=== PATIENT | male | born 1980 | race Caucasian/White ===

== ENCOUNTER 2016-11-22 07:30 | Emergency (ER) | payer OTHER ==
--- NOTE | 2016-11-22 08:17 | ED CLINICAL REPORT ---
Clinical Report - Physicians/Mid Levels [facility] [address] [place] [address] 11/22/2016 7:34 Patient: KASSANDRA SUAREZ Time Seen: 0741; initial patient contact. Arrived- By private vehicle. Historian- patient. HISTORY OF PRESENT ILLNESS Chief Complaint: INJURY TO FACE. The injury occurred today. The patient sustained a single moderate blow with a metal object. Occurred at work. The patient complains of moderate pain. No blow to the head, neck pain, loss of consciousness or seizure. Not dazed. REVIEW OF SYSTEMS All systems otherwise negative, except as recorded above. PAST HISTORY See nurses notes. Tetanus immunization status is up-to-date. Medications: Flomax Oral. Flonase Nasal. Allergies: No Known Drug Allergy. ADDITIONAL NOTES The nursing notes have been reviewed. PHYSICAL EXAM Vital Signs: 11/22/2016 07:40 BP: 147/95. HR: 85. RR: 16. O2 saturation: 98%. Temp: 98.1 F. Pain level now: 5/10. Oxygen saturation normal. Appearance: Alert. No acute distress. Head: Head non-tender. No swelling of head. No Castellon's sign or raccoon eyes. (1 cm laceration to the left cheek with small hematoma. no active bleeding. no gross contamination. no fb.). Eyes: Pupils equal, round and reactive to light. Pupillary exam: Right pupil 3mm, round and reactive to light directly and consensually and with accommodation. Left pupil: 3mm, round and reactive to light directly and consensually and with accommodation. EOM intact. ENT: No dental injury. No hemotympanum. Pharynx normal. No malocclusion. Neck: No decreased ROM or muscle spasm in the neck. No pain with movement of head/neck. Painless ROM. Non-tender. No vertebral tenderness. CVS: Normal heart rate and rhythm. Heart sounds normal. Pulses normal. Respiratory: Breath sounds normal. Chest nontender. Abdomen: Soft and nontender. No organomegaly. Back: No tenderness. ROM normal. Skin: Skin intact. Skin warm and dry. Normal skin color. Normal skin turgor. Extremities: Normal inspection. Pelvis stable. Extremities atraumatic. No lower extremity edema. Neuro: [place] Coma Scale: 15- eyes open spontaneously (4); best verbal response- oriented x 3 (5); best motor response- obeys commands (6). Oriented X 3. Mood/affect normal. Speech normal. No motor deficit. Normal gait. No sensory deficit. PROGRESS AND PROCEDURES Laceration Repair: Location: face (left cheek). Length: 1 cm. Complexity: simple (closed with tissue adhesive). Wound depth/shape- subcutaneous. Distal neuro/vascular/tendon status normal. Prepped with chlorhexidine. Wound explored, cleansed, irrigated and examined to the base in bloodless field extensively with normal saline. Closure of superficial layer: (three layers). Skin adhesive used. Post-procedure: he is stable and there are no complications. Bleeding is controlled and neuro-vascular status is intact distal to the wound. Tetanus immunization up-to-date. Estimated blood loss: < 2 mL. Course of Care: patient with injury to the face. no signs of facial fracture. no signs of entrapment. patient without concerning signs of intracranial bleed. offered evaluation with CT however patient declined. reports he would like to have the wound closed. approximated well with dermabond. see procedure note for details. patient stable on repeat exam. discussed with patient his work up in the ED including diagnosis, home care, follow up, and return precautions. All questions answered. Patient expressed understanding of these instructions and was agreeable to them. Disposition: Discharged. Condition: good. CLINICAL IMPRESSION Single laceration to the left cheek area.No foreign body present. Single contusion with soft tissue hematoma to the left cheek area. Essential hypertension. INSTRUCTIONS Warnings: GENERAL WARNINGS: Return or contact your physician immediately if your condition worsens or changes unexpectedly, if not improving as expected, or if other problems arise. Specifically return if pain, vomiting, bleeding, breathing difficulty or fever. Your Current Medications: CONTINUE TAKING THE FOLLOWING MEDICATIONS: Flomax Oral. Flonase Nasal. OTC Medications: Acetaminophen (available over the counter): take according to label instructions. Motrin (available over the counter): take according to label instructions. Follow-up: Return to the emergency department as needed. Follow up with your doctor in five days. Reason for referral: recheck today's concerns. Summary of care provided to patient via paper. Screening today revealed the patient's blood pressure to be in the hypertensive range. The patient should follow up with a primary care provider for blood pressure management. Understanding of the discharge instructions verbalized by patient. (Electronically signed by Chris Jolly Dr. 11/23/2016 8:45)
--- NOTE | 2016-11-22 08:17 | ED NURSING NOTES ---
Clinical Report - Nurses [facility] [address] [place] [address] 11/22/2016 7:34 Patient: KASSANDRA SUAREZ TRIAGE Triage time 07:40 Nov 22 2016. Acuity: LEVEL 3. Chief Complaint: LACERATION. Alert. ADILIA COMA SCORE: [place] Coma Scale: 15- eyes open spontaneously (4); best verbal response- oriented x 4 (5); best motor response- obeys commands (6). --07:49 Jack Dawson R.N. 07:40 11/22/16. BP: 147/95. HR: 85. RR: 16. O2 saturation: 98% on room air. Temp: 98.1 F. Pain level now: 09/21. --07:49 Jack Dawson R.N. Weight: 69.3 kg stated. Height/Length: 67 inches Per Patient. BMI: 24. --07:41 Jcak Dawson R.N. Medications Flomax Oral. Flonase Nasal. --07:46 Jack Dawson R.N. Allergies No Known Drug Allergy. --07:45 Jack Dawson R.N. History Arrived by private vehicle. Historian: patient. Unaccompanied. Primary physician ([facility]). ( Laceration under (L) Eye. Pt states that he was using a leticia on a semi trailer and the leticia released hitting him in the face.). Location of injuries: left cheek. No loss of consciousness. 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 Trauma activation: Pre-hospital notification of patient arrival was not received. PAST MEDICAL HX: Tetanus status: up-to-date. Immunizations: status is unknown. SOCIAL HX: Smoker- current status unknown. No alcohol use or drug use. No infectious disease exposure. ABUSE ASSESSMENT: No report of abuse. FALL RISK ASSESSMENT: Fall risk assessment completed. No fall risk identified. NUTRITIONAL RISK ASSESSMENT: The nutritional risk assessment revealed no deficiencies. FUNCTIONAL ASSESSMENT: Functional assessment: no impairments noted. LEARNING NEEDS ASSESSMENT: The learning needs assessment revealed no barriers. SKIN INTEGRITY ASSESSMENT: Skin integrity risk assessment completed. No skin integrity risk identified. --07:49 Jack Dawson R.N. PROBLEMS: Myofascial Strain. Headache. Immunizations. Hypertension. Dental Pain. --07:47 Jack Dawson R.N. ADDITIONAL SURGERIES: Vasectomy. --07:47 Jack Dawson R.N. Interventions ID band on patient. To treatment room. --07:49 Jack Dawson R.N. PHYSICAL ASSESSMENT Ambulatory to room. GENERAL / NEURO / PSYCH: Alert. Oriented X 4. Appears in pain. RESPIRATORY: Respirations not labored. CVS: Normal heart rate and rhythm. GI / : Abdomen soft. EXTREMITIES: Extremities exhibit normal ROM. Neuro-vascular status intact to the extremity. SKIN: Skin is warm and dry. ( laceration under (L) eye). --07:50 Jack Dawson R.N. NURSING PROGRESS NOTES Reassurance given. Patient identifiers checked. Call light placed in reach. Side rails up x 1. Bed placed in lowest position. Brakes of bed on. Patient ready for evaluation- chart flagged and ED physician notified. --07:50 Jack Dawson R.N. DISPOSITION / DISCHARGE Departure time: 08:20 Nov 22 2016. Condition at departure: improved. No learning barriers present. Discharge instructions provided and reviewed with the patient. Reviewed warnings. Reviewed medication(s). Treatments reviewed. Reviewed referrals. Patient verbalized understanding. Written instructions provided in Filipino. The patient was discharged home. He left the Emergency Department ambulatory and via private vehicle. Patient driving. --08:20 Lincoln Pratt R.N. 07:40 11/22/16. BP: 147/95. HR: 85. RR: 16. O2 saturation: 98% on room air. Temp: 98.1 F. Pain level now: 09/21. --08:20 Lincoln Pratt R.N. Locked/Released at 11/22/2016 8:20 by Lincoln Pratt R.N.
--- NOTE | 2016-11-22 08:17 | ED ORDER SUMMARY ---
..... Patient: KASSANDRA SUAREZ OrderSheet [facility] VisitID: [id number] [address] [place] [address] 36y, M Registration Date/Time: 11/22/2016 ORDER SHEET Weight: 69.3 kg (stated) Allergies: No Known Drug Allergy GENERAL ORDERS: Irrigate Wounds (07:50 11/22/2016 Pasha Russ) (8:00 [place] [id number]) MEDICATION ORDERS: IV FLUIDS: ORDER SHEET NOTES: [Electronically signed by Lincoln Pratt R.N. (08:20 11/22/2016)] [Electronically signed by Chris Jolly Dr. (08:45 11/23/2016)] [Electronically locked/signed by Lincoln Pratt R.N. (08:20 11/22/2016)]
--- NOTE | 2016-11-22 08:17 | ED NURSING NOTES ---
Clinical Report - Nurses [facility] [address] [place] [address] 11/22/2016 7:34 Patient: KASSANDRA SUAREZ TRIAGE Triage time 07:40 Nov 22 2016. Acuity: LEVEL 3. Chief Complaint: LACERATION. Alert. ADILIA COMA SCORE: [place] Coma Scale: 15- eyes open spontaneously (4); best verbal response- oriented x 4 (5); best motor response- obeys commands (6). --07:49 Jack Dawson R.N. 07:40 11/22/16. BP: 147/95. HR: 85. RR: 16. O2 saturation: 98% on room air. Temp: 98.1 F. Pain level now: 09/21. --07:49 Jack Dawson R.N. Weight: 69.3 kg stated. Height/Length: 67 inches Per Patient. BMI: 24. --07:41 Jack Dawson R.N. Medications Flomax Oral. Flonase Nasal. --07:46 Jack Dawson R.N. Allergies No Known Drug Allergy. --07:45 Jack Dawson R.N. History Arrived by private vehicle. Historian: patient. Unaccompanied. Primary physician ([facility]). ( Laceration under (L) Eye. Pt states that he was using a leticia on a semi trailer and the leticia released hitting him in the face.). Location of injuries: left cheek. No loss of consciousness. 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 Trauma activation: Pre-hospital notification of patient arrival was not received. PAST MEDICAL HX: Tetanus status: up-to-date. Immunizations: status is unknown. SOCIAL HX: Smoker- current status unknown. No alcohol use or drug use. No infectious disease exposure. ABUSE ASSESSMENT: No report of abuse. FALL RISK ASSESSMENT: Fall risk assessment completed. No fall risk identified. NUTRITIONAL RISK ASSESSMENT: The nutritional risk assessment revealed no deficiencies. FUNCTIONAL ASSESSMENT: Functional assessment: no impairments noted. LEARNING NEEDS ASSESSMENT: The learning needs assessment revealed no barriers. SKIN INTEGRITY ASSESSMENT: Skin integrity risk assessment completed. No skin integrity risk identified. --07:49 Jack Dawson R.N. PROBLEMS: Myofascial Strain. Headache. Immunizations. Hypertension. Dental Pain. --07:47 Jack Dawson R.N. ADDITIONAL SURGERIES: Vasectomy. --07:47 Jack Dawson R.N. Interventions ID band on patient. To treatment room. --07:49 Jack Dawson R.N. PHYSICAL ASSESSMENT Ambulatory to room. GENERAL / NEURO / PSYCH: Alert. Oriented X 4. Appears in pain. RESPIRATORY: Respirations not labored. CVS: Normal heart rate and rhythm. GI / : Abdomen soft. EXTREMITIES: Extremities exhibit normal ROM. Neuro-vascular status intact to the extremity. SKIN: Skin is warm and dry. ( laceration under (L) eye). --07:50 Jack Dawson R.N. NURSING PROGRESS NOTES Reassurance given. Patient identifiers checked. Call light placed in reach. Side rails up x 1. Bed placed in lowest position. Brakes of bed on. Patient ready for evaluation- chart flagged and ED physician notified. --07:50 Jack Dawson R.N. DISPOSITION / DISCHARGE Departure time: 08:20 Nov 22 2016. Condition at departure: improved. No learning barriers present. Discharge instructions provided and reviewed with the patient. Reviewed warnings. Reviewed medication(s). Treatments reviewed. Reviewed referrals. Patient verbalized understanding. Written instructions provided in Gambian. The patient was discharged home. He left the Emergency Department ambulatory and via private vehicle. Patient driving. --08:20 Lincoln Pratt R.N. 07:40 11/22/16. BP: 147/95. HR: 85. RR: 16. O2 saturation: 98% on room air. Temp: 98.1 F. Pain level now: 09/21. --08:20 Lincoln Pratt R.N. Locked/Released at 11/22/2016 8:20 by Lincoln Pratt R.N.
--- NOTE | 2016-11-22 08:17 | ED ORDER SUMMARY ---
..... Patient: KASSANDRA SUAREZ OrderSheet [facility] VisitID: [id number] [address] [place] [address] 36y, M Registration Date/Time: 11/22/2016 ORDER SHEET Weight: 69.3 kg (stated) Allergies: No Known Drug Allergy GENERAL ORDERS: Irrigate Wounds (07:50 11/22/2016 Pasha Russ) (8:00 [place] [address]) MEDICATION ORDERS: IV FLUIDS: ORDER SHEET NOTES: [Electronically signed by Lincoln Pratt R.N. (08:20 11/22/2016)] [Electronically signed by Chris Jolly Dr. (08:45 11/23/2016)] [Electronically locked/signed by Lincoln Pratt R.N. (08:20 11/22/2016)]
--- NOTE | 2016-11-23 08:45 | ED MED RECONCILIATION SUMMARY ---
Patient: KASSANDRA SUAREZ Medication Reconciliation Report [facility] VisitID: [id number] [place] [address] 36y, M Registration Date/Time: 11/22/2016 Weight: 69.3 kg Height/Length: 67 in. BMI: 24.0 ALLERGIES: No Known Drug Allergy The patient's Home Medications are listed below: CONTINUE TAKING THE FOLLOWING MEDICATIONS: Flomax Oral Flonase Nasal The source(s) of the original Home Medication information: Not obtained. The following Medications were given to the patient in the Emergency Department: None. The following Medications were prescribed to the patient: Acetaminophen (available over the counter): take according to label instructions. -- Chris Jolly Dr. Motrin (available over the counter): take according to label instructions. -- Chris Jolly Dr.
--- NOTE | 2016-11-23 08:45 | ED MED RECONCILIATION SUMMARY ---
Patient: KASSANDRA SUAREZ Medication Reconciliation Report [facility] VisitID: [id number] [place] [address] 36y, M Registration Date/Time: 11/22/2016 Weight: 69.3 kg Height/Length: 67 in. BMI: 24.0 ALLERGIES: No Known Drug Allergy The patient's Home Medications are listed below: CONTINUE TAKING THE FOLLOWING MEDICATIONS: Flomax Oral Flonase Nasal The source(s) of the original Home Medication information: Not obtained. The following Medications were given to the patient in the Emergency Department: None. The following Medications were prescribed to the patient: Acetaminophen (available over the counter): take according to label instructions. -- Chris Jolly Dr. Motrin (available over the counter): take according to label instructions. -- Chris Jolly Dr.
--- NOTE | 2016-11-23 08:45 | ED MAR SUMMARY ---
..... Medication Administration Record [facility] [address] [place] [address] Patient: KASSANDRA SUAREZ Visit ID: [id number] 36y, M Weight: 69.3 kg Height/Length: 67 in BMI: 24 ALLERGIES: No Known Drug Allergy
--- NOTE | 2016-11-23 08:45 | ED DISCHARGE INSTRUCTIONS ---
Patient: KASSANDRA SUAREZ General Instructions [facility] VisitID: [id number] [place] [address] 36y, M Registration Date/Time: 11/22/2016 Single laceration to the left cheek area.No foreign body present. Single contusion with soft tissue hematoma to the left cheek area. Essential hypertension. INSTRUCTIONS Warnings: GENERAL WARNINGS: Return or contact your physician immediately if your condition worsens or changes unexpectedly, if not improving as expected, or if other problems arise. Specifically return if pain, vomiting, bleeding, breathing difficulty or fever. Your Current Medications: CONTINUE TAKING THE FOLLOWING MEDICATIONS: Flomax Oral. Flonase Nasal. OTC Medications: Acetaminophen (available over the counter): take according to label instructions. Motrin (available over the counter): take according to label instructions. Follow-up: Return to the emergency department as needed. Follow up with your doctor in five days. Reason for referral: recheck today's concerns. Summary of care provided to patient via paper. Screening today revealed the patient's blood pressure to be in the hypertensive range. The patient should follow up with a primary care provider for blood pressure management. Understanding of the discharge instructions verbalized by patient. ADDITIONAL INFORMATION Laceration, Face (Suture Or Tape) Alaceration is a cut through the skin. This will require stitches if it is deep. Minor cuts may be treated with surgical tape. Home care The following guidelines will help you care for your laceration at home: If a bandage was applied and it becomes wet or dirty, replace it. Otherwise, leave it in place for the first 24 hours, then change it once a day or as directed. If sutures were used, clean the wound daily: After removing the bandage, wash the area with soap and water. Use a wet cotton swab to loosen and remove any blood or crust that forms. After cleaning, keep the wound clean and dry. Talk with your doctor before applying any antibiotic ointment to the wound. Reapply a fresh bandage. You may remove the bandage to shower as usual after the first 24 hours, but do not soak the area in water (no swimming) until the sutures are removed. If surgical tape was used, keep the area clean and dry. If it becomes wet, blot it dry with a towel. The doctor may prescribe an antibiotic cream or ointment to prevent infection. Do not stop taking this medication until you have have finished the prescribed course or the doctor tells you to stop. The doctor may also prescribe medications for pain. Follow the doctor's instructions for taking these medications.If you have chronic liver or kidney disease or ever had a stomach ulcer or GI bleeding, talk with your doctor before using these medicines. Follow-up care Follow up with your health care provider. Most facial cuts heal in five days with no problem. However, even with proper treatment, a wound infection sometimes occurs. Therefore, check the wound daily for the warning signs listed below. Stitches should not be left in the face for more thanfivedays; otherwise, permanent stitch paige may form. If surgical tape closures were used, you may remove them yourself afterfivedays, if they have not fallen off by then. When to seek medical care Get prompt medical attention if any of these occur: Increasing pain in the wound Redness, swelling, or pus coming from the wound If sutures come apart or fall out before 5 days If the surgical tape closures fall off before 5 days, or the wound edges reopen Fever of 100.4F (38C) or higher, or as directed by your health care provider Bleeding not controlled by direct pressure Facial Contusion (No Wake-Up) A facial contusion is a bruise with swelling and sometimes bleeding under the skin. The swelling should start to go down within two days. Although there may be no signs of a serious injury at this time, symptoms may appear later which could be a sign of a more serious problem. Therefore, watch for the warning signs below. Home care The following guidelines will help you care for your injury at home: If you have swelling of the face, apply an ice pack (ice cubes in a plastic bag, wrapped in a towel) for 20 minutes every 12 hours until the swelling starts to go down. If you have scrapes or cuts on your face, clean them daily with soap and water. Apply an antibiotic ointment or cream for the first few days to prevent infection. You may use acetaminophen or ibuprofen to control pain, unless another pain medicine was prescribed.If you have chronic liver or kidney disease or ever had a stomach ulcer or GI bleeding, talk with your doctor before using these medicines. Do not use ibuprofen in children under six months of age. For the next 24 hours: Do not take alcohol, sedatives or medicines that make you sleepy. Do not drive or operate machinery. Avoid strenuous activities. No lifting or straining. If you have had any symptoms of aconcussiontoday (nausea, vomiting, dizziness, confusion, headache, memory loss or if you were knocked out), do not return to sports or any activity that could result in another head injury until all symptoms are gone and you have been cleared by your doctor. A second head injury before fully recovering from the first one can lead to serious brain injury. Follow-up care Follow up with your doctor in one week or as directed. Note: Any X-rays or CT scans taken will be reviewed by a radiologist. You will be notified of any new findings that may affect your care. When to seek medical care Get prompt medical attention if any of the following occur: Repeated vomiting Severe or worsening headache or dizziness Unusual drowsiness, or unable to awaken as usual Confusion or change in behavior or speech, memory loss, blurred vision Convulsion (seizure) Increasing scalp or face swelling Redness, warmth or pus from the swollen area Fluid drainage or bleeding from the nose or ears Fever of 100.4F (38C) or higher, or as directed by your health care provider Increasing jaw pain with chewing or increasing pain in the sinuses Nose looks crooked or cannot breathe through your nose after swelling goes down High Blood Pressure -- To Be Confirmed [No Tx] Your blood pressure was higher today than normal. Sometimes anxiety or pain can cause a temporary rise in blood pressure that later returns to normal. If your blood pressure is high on one measurement, this does not mean that you have hypertension (a chronic illness). However, you must have your blood pressure measured again within the next few days to find out if its still high. A normal blood pressure is 120/80 or less. The first (top) number is the "systolic" pressure. The second (bottom) number is the "diastolic" pressure. Hypertension exists when either the top number is 140 or higher, OR the bottom number is 90 or higher on repeated measurements. Blood pressure in the range of 120-140 (systolic) or 80-89 (diastolic) is considered "pre-hypertension". This means your are at risk for getting hypertension. You should have regular blood pressure checks to be sure your blood pressure is not rising. Home Care: Measure your blood pressure on 3 different days and write down the results. This can be done at your doctor's office or this facility. Some pharmacies and grocery stores offer automated blood pressure machines for your use. Follow Up: If your blood pressure is "high" (over 120/80) on 2 out of 3 days, you will need to follow up with your doctor for further evaluation and treatment. DO NOT PUT THIS OFF! Untreated high blood pressure increases the risk for heart attack, also known as acute myocardial infarction, or AMI, and stroke. It is a treatable condition. Get Prompt Medical Attention if any of the following occur: Chest pain or shortness of breath Severe headache Throbbing or rushing sound in the ears Nosebleed Sudden severe abdominal pain Extreme drowsiness, confusion or fainting Dizziness or vertigo (dizziness with spinning sensation) Weakness of an arm or leg or one side of the face Difficulty with speech or vision You have been given the following additional information: Laceration, Face (Suture Or Tape) Facial Contusion, No Wakeup Hypertension, To Be Confirmed (Electronically signed by Chris Jolly Dr. 11/23/2016 8:45)
--- NOTE | 2016-11-23 08:45 | ED MAR SUMMARY ---
..... Medication Administration Record [facility] [address] [place] [address] Patient: KASSANDRA SUAREZ Visit ID: [id number] 36y, M Weight: 69.3 kg Height/Length: 67 in BMI: 24 ALLERGIES: No Known Drug Allergy
== END 2016-11-22 08:20 | disposition home or self-care (01) ==
LOC: ED SRH 07:30
DX: S01.412A Laceration without foreign body of left cheek and temporomandibular area, initial encounter (principal); S00.83XA Contusion of other part of head, initial encounter; W22.8XXA Striking against or struck by other objects, initial encounter; Y93.89 Activity, other specified; Y92.89 Other specified places as the place of occurrence of the external cause; Y99.0 Civilian activity done for income or pay; I10 Essential (primary) hypertension; Z79.899 Other long term (current) drug therapy
CPT/HCPCS: 82708